=== PATIENT | male | born 2000 | race Caucasian/White ===

== ENCOUNTER 2023-12-17 17:33 | Emergency (ER) | payer SELFPAY ==
[2023-12-17 17:35] VITALS: BP 109/70; PULSE 92; RESP 17; TEMP 36.8; O2SAT 97; BMI 18.4
[2023-12-17 17:49] VITALS: BP 109/70; PULSE 96; O2SAT 94
[2023-12-17 18:00] VITALS: BP 104/69; PULSE 99; O2SAT 95
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
[2023-12-17] MEDS: BACITRACIN ZINC OINT 30GM TUBE TP (18:32)
[2023-12-17 18:34] VITALS: BP 104/69; PULSE 99; RESP 18; TEMP 36.7; O2SAT 95
== END 2023-12-17 18:36 | disposition home or self-care (01) ==
PROVIDERS: Emergency Provider Emergency Medicine
DX: L29.0 Pruritus ani (principal); T65.891A Toxic effect of other specified substances, accidental (unintentional), initial encounter
CPT/HCPCS: 99283

== ENCOUNTER 2024-03-02 12:48 | Emergency (ER) | payer BC, SELFPAY ==
[2024-03-02 13:00] VITALS: BP 112/67; PULSE 116; RESP 22; TEMP 37.1; O2SAT 96; BMI 18.3
--- NOTE | 2024-03-02 13:07 | ED_ITS ---
Discharge Plan Disposition Patient Disposition: Home, Self-Care Condition: Good Prescriptions Prescriptions: New azithromycin [Zithromax] 250 mg tablet 250 mg PO UD DOSE PK Qty: 6 0RF Rx Instructions: Take two (2) tablets today, then one (1) tablet days #2 thru #5 [id number]-[id number] [Bromfed DM] 2-30-10 mg/5 mL Syrup 5 ml PO Q6H PRN (Reason: Cough) Qty: 240 0RF Referrals Follow up/Referrals: Provider,Referral, [Primary Care Provider] - See instructions Activity Restrictions/Add. Instructions Additional Instructions/Restrictions: Drink plenty of fluids. Take tylenol or ibuprofen for pain or fever. Take the medications as directed. Follow up with your regular doctor. GO TO THE ER FOR ANY WORSENING SYMPTOMS Clinical Impressions Clinical Impression: Pharyngitis, Acute viral syndrome Stand Alone Forms Stand Alone Forms: Work/School Release Instructions Patient Instructions: Sore Throat, DI for Pharyngitis/Tonsillopharyngitis -- Adult, DI for Viral Syndrome Discharge ED Provider: Sid Ferreira [facility] General Stated complaint: soa, fever, congestion Time Seen by Provider: 03/02/24 13:07 History of Present Illness Provider Complaint: He c/o sore throat and low grade fever for the past 2 days. Related Data Previous Rx's Medication Instructions Recorded azithromycin 250 mg tablet 250 mg PO UD DOSE PK #6 tabs 03/02/24 (Zithromax) dmkdkivfnwoxorr-rcdofhnixakaztq-WE 5 ml PO Q6H PRN Cough #240 mL 03/02/24 2 mg-30 mg-10 mg/5 mL oral syrup (Bromfed DM) Allergies Allergy/AdvReac Type Severity Reaction Status Date / Time Penicillins Allergy Verified 12/17/23 17:48 [facility] Disclaimer: The information contained in this section may have been updated after the patient was seen, as this information can be updated by other users. Medical History (Updated 03/02/24 @ 13:45 by Sid Ferreira APRN) UTI (urinary tract infection) Depression Anxiety Social History (Updated 12/17/23 @ 18:34 by Elian Rodríguez MD) Smoking Status: Current every day smoker alcohol intake: never current occupational status: employed Travel in the last 8 weeks: None ROS Obtained: Yes All systems reviewed & no additional complaints except as documented Constitutional Constitutional: Reports chills and Reports fever(s) Eyes Eyes: Denies eye discharge ENT Ears, Nose, Mouth, and Throat: Reports as per HPI Cardiovascular Cardiovascular: Denies chest pain Respiratory Respiratory: Denies chest congestion and Reports cough Gastrointestinal Gastrointestingal: Reports nausea; Denies abdominal pain, constipation, crampi ng, diarrhea or vomiting Musculoskeletal Musculoskeletal: Denies arthralgias Integumentary/Breasts Skin/Breast: Denies rash Neurologic Neurologic: Denies paresthesias Physical Exam General General appearance: alert and in no apparent distress Head Head exam: atraumatic, normocephalic and normal inspection Eye Eye exam: Present normal appearance, PERRL and EOMI ENT ENT exam: Present mucous membranes moist and normal external ear exam Expanded ENT Exam TM/Canal exam: Bilateral TM: erythema and bulging Nose exam: Absent sinus tenderness Mouth exam: Present normal external inspection; Absent drooling Teeth exam: Present normal inspection Throat exam: Present tonsillar erythema, tonsillomegaly and tonsillar exudate Neck Neck exam: Present normal inspection, full ROM and trachea midline; Absent tenderness, meningismus or lymphadenopathy Chest Chest inspection: Present normal inspection and symmetric chest wall rise; Absent tenderness Respiratory Respiratory exam: Present normal lung sounds bilaterally; Absent respiratory distress, wheezes, stridor or accessory muscle use Cardiovascular Cardiovascular exam: Present regular rate and normal rhythm; Absent systolic murmur or diastolic murmur Abdominal Exam Abdominal exam: Present soft and normal bowel sounds; Absent distention, tenderness, guarding, rebound or rigidity Extremities Exam Extremities exam: Present normal inspection and normal capillary refill; Absent calf tenderness Back Exam Back exam: Present normal inspection and full ROM; Absent tenderness, CVA tenderness (R) or CVA tenderness (L) Neurological Exam Neurological exam: Present alert, oriented X3 and CN II-XII intact Psychiatric Psychiatric exam: Present normal affect and normal mood Skin Skin exam: Present warm, dry, intact and normal color Medical Decision Making Medical Records Medical records reviewed: No I reviewed the patient's medical records. Sandro Inquiry Pt receiving controlled substance: No Lab Data Lab results reviewed: Yes I reviewed the patient's lab results.
[2024-03-02 13:16] LABS: UTC Strep Screen (Rapid) Negative (Negative)
[2024-03-02 13:50] VITALS: BP 112/67; PULSE 116; RESP 22; TEMP 37.1; O2SAT 96
== END 2024-03-02 13:53 | disposition home or self-care (01) ==
PROVIDERS: Emergency Provider Nurse Practitioner Family
DX: J02.9 Acute pharyngitis, unspecified (principal); R50.9 Fever, unspecified; B34.9 Viral infection, unspecified
CPT/HCPCS: 87635; 87880; 99204; 99212; G0463

== ENCOUNTER 2024-08-16 18:05 | Emergency (ER) | payer BC, MEDICAID, SELFPAY ==
[2024-08-16 18:20] VITALS: BP 118/74; PULSE 72; RESP 14; TEMP 36.7; O2SAT 98; BMI 18.9
[2024-08-16 18:45] LABS: Microscopic, Urine URINE MICROSCOPIC (MICROSCOPIC)
[2024-08-16 18:48] LABS: Bilirubin,Urine Negative (Negative); Blood, Urine Negative (Negative); Color,Urine YELLOW (Yellow); Glucose,Urine (UA) Negative (Negative); Ketones,Urine Negative (Negative); Leukocyte Esterase,Urine Negative (Negative); Nitrate,Urine Negative (Negative); PH,Urine 7.5 (5.0-8.5); Protein,Urine Negative (Negative)
[2024-08-16 19:00] LABS: RBC,Urine Occasional #/hpf (0-3)
[2024-08-16 19:01] LABS: Amorphous Sediment,Urine 4+ /lpf; Appearance,Urine Cloudy (Clear); Bacteria,Urine 1+ /lpf; WBC,Urine Occasional #/hpf (0-3)
[2024-08-16] MEDS: cefTRIAXone 500MG VIAL 500 MG IM (19:30)
[2024-08-16] MEDS: LIDOCAINE 1% 5ML PF VIAL IM (19:30)
[2024-08-16] MEDS: metroNIDAZOLE 500 MG TABLET 2000 MG PO (19:30)
[2024-08-16 19:39] VITALS: BP 122/87; PULSE 68; RESP 18; TEMP 36.6; O2SAT 98
--- NOTE | 2024-08-16 20:20 | HMH.EDGENADL ---
Discharge Plan Disposition Patient Disposition: Home, Self-Care Condition: Good Prescriptions Prescriptions: New doxycycline monohydrate 100 mg capsule 100 mg PO BID 7 Days Qty: 14 0RF No Action azithromycin [Zithromax] 250 mg tablet 250 mg PO UD DOSE PK Qty: 6 0RF Rx Instructions: Take two (2) tablets today, then one (1) tablet days #2 thru #5 eihfkgxmreenxwy-kxjritxec-RJ [Bromfed DM] 2-30-10 mg/5 mL Syrup 5 ml PO Q6H PRN (Reason: Cough) Qty: 240 0RF Referrals Follow up/Referrals: Provider,Referral, MD [Primary Care Provider] - See instructions Activity Restrictions/Add. Instructions Additional Instructions/Restrictions: You were seen after sexually transmitted infection exposure. You were treated for gonorrhea, chlamydia and trichomonas. Your tests are still pending. Please follow up with your PCP. Clinical Impressions Clinical Impression: Exposure to sexually transmitted disease (STD) Instructions Patient Instructions: DI for Trichomoniasis Print Language Print Language: Thai Discharge ED Provider: Elian Rodríguez General Adult HPI <MANUEL Chua - Last Filed: 08/16/24 20:24> General Chief complaint: Urogenital-Male Stated complaint: was told partner had trich & to be treated Time Seen by Provider: 08/16/24 18:23 Mode of Arrival: Ambulatory Source of Information: Patient Limitations: No Limitations Description of Symptoms (Recalled from ER Triage Doc. by RN): PT REPORTS WAS TOLD EARLIER THIS DATE HIS PARTNER HAS TRICH AND THAT HE WOULD NEED TO BE TREATED. PT STATES NO PAIN WITH URINATION, NO DISCHARGE NOTED. History of Present Illness HPI narrative: Patient presents comes with concerns over trichomonas exposure. His apparently tested positive earlier this evening. He denies any dysuria or frequency. Denies any penile discharge. He does report that they both had a new sexual partner recently. Denies any fevers or vomiting. complaint: trichomonas exposure Onset (ago): unknown Location: genitals Quality: other (no symptoms) Relieving factors: none Exacerbating factors: none Associated symptoms: denies other symptoms Treatments prior to arrival: none Related Data Previous Rx's ?Medication ?Instructions ?Recorded azithromycin 250 mg tablet 250 mg PO UD DOSE PK #6 tabs 03/02/24 (Zithromax) fayrhancntxnero-cdcwojwvonpyczl-VW 5 ml PO Q6H PRN Cough #240 mL 03/02/24 2 mg-30 mg-10 mg/5 mL oral syrup (Bromfed DM) doxycycline monohydrate 100 mg 100 mg PO BID 7 days #14 caps 08/16/24 capsule Allergies Allergy/AdvReac Type Severity Reaction Status Date / Time Penicillins Allergy Verified 12/17/23 17:48 PFSH <MANUEL Chua - Last Filed: 08/16/24 20:24> PFS Disclaimer: The information contained in this section may have been updated after the patient was seen, as this information can be updated by other users. Medical History (Updated 08/16/24 @ 19:07 by MANUEL Chua) UTI (urinary tract infection) Depression Anxiety Social History (Updated 08/16/24 @ 18:34 by Jessica Montalvo RN) Smoking Status: Current every day smoker alcohol intake: never current occupational status: employed Travel in the last 8 weeks: None Have you lived/traveled outside [place] in past 30 days?: No Contact w/someone who lives/traveled outside [place] past 30 days?: No Exposure to someone with infectious disease in past 14 days?: No Do you have a fever (greater than 100.4 F or 38 C)?: No Have you tested positive for COVID-19: No Exposed to someone with COVID-19 in past 14 days?: No Do you have a sore throat?: No Do you have a cough?: No Do you have any weakness?: No Do you have any diarrhea?: No Are you experiencing any unusual bleeding?: No Do you have any muscle aches/pain?: No Do you have any abdominal pain?: No Are you experiencing loss of taste or smell?: No <MANUEL Chua - Last Filed: 08/16/24 20:24> ROS Obtained: Yes Systems reviewed as appropriate & no additional complaints except as documented Physical Exam <MANUEL Chua - Last Filed: 08/16/24 20:24> General General appearance: alert and in no apparent distress Head Head exam: atraumatic and normocephalic Eye Eye exam: Present normal appearance and EOMI Chest Chest inspection: Present symmetric chest wall rise Respiratory Respiratory exam: Present normal lung sounds bilaterally; Absent wheezes or stridor Cardiovascular Cardiovascular exam: Present regular rate and normal rhythm; Absent systolic murmur Abdominal Exam Abdominal exam: Present soft and distention; Absent tenderness Extremities Exam Extremities exam: Present full ROM Neurological Exam Neurological exam: Present alert and oriented X3 Psychiatric Psychiatric exam: Present normal affect and normal mood Skin Skin exam: Present warm, dry and intact Medical Decision Making <MANUEL Chua - Last Filed: 08/16/24 20:24> Medical Records Screening: Per USPSTF and CDC recommendations, given the prevalence of disease in our region, it is our hospital?s policy to screen for HIV and viral Hepatitis for all patients aged 18 and over and those with ongoing risk factors. Sandro Inquiry Pt receiving controlled substance: No Vital Signs: 08/16/24 18:20 08/16/24 19:39 Temperature 98.1 F 97.8 F Temperature Source Oral Pulse Rate 68 Pulse Rate [Right Radial] 72 Respiratory Rate 14 18 Blood Pressure 122/87 Blood Pressure [Right Arm] 118/74 Blood Pressure Mean [Right Arm] 88 Blood Pressure Source [Right Arm] Automatic Cuff Blood Pressure Position [Right Arm] Sitting 02 Sat by Pulse Oximetry 98 Oxygen Delivery Method Room Air Room Air Lab Data Lab Results 08/16/24 18:43: Urine Color Yellow, Urine Appearance Cloudy, Urine pH 7.5, Ur Specific [place] 1.020, Urine Protein Negative, Urine Glucose (UA) Negative, Urine Ketones Negative, Urine Blood Negative, Urine Nitrate Negative, Urine Bilirubin Negative, Urine Urobilinogen 1.0, Ur Leukocyte Esterase Negative, Urine RBC Occasional, Urine WBC Occasional, Amorphous Sediment 4+, Urine Bacteria 1+ Orders (Tests/Meds): ED MEDICATIONS Discontinued Medications Generic Name Dose Route Start Last Admin Trade Name Arvin PRN Reason Stop Dose Admin Ceftriaxone Sodium 500 mg 08/16/24 19:04 08/16/24 19:30 Ceftriaxone 500mg Vial IM 08/16/24 19:05 500 mg ONCE ONE Administration Lidocaine HCl 0 ml 08/16/24 19:04 08/16/24 19:30 Lidocaine 1% 5ml Pf Vial IM 08/16/24 19:05 1 ml ONCE ONE Administration Metronidazole 2,000 mg 08/16/24 19:04 08/16/24 19:30 Metronidazole 500 Mg Tablet PO 08/16/24 19:05 2,000 mg ONCE ONE Administration ORDERS Category Date Time Status Urinalysis and Microscopic Stat Lab 08/16/24 18:43 Completed Medical Decision Narrative: In summary patient is a 24-year-old who presents the emergency department for evaluation of exposure to trichomonas. Patient is hemodynamically stable upon arrival, A-fib. Unremarkable physical. Differential diagnosis includes trichomonas, gonorrhea, chlamydia. Initial workup will be conducted with urinalysis. Initial inventions include treated empirically with Flagyl and Rocephin, will be given a prescription for doxycycline. Initial workup reviewed by me urinalysis unremarkable. Given this patient is appropriate for discharge home with prescription for doxycycline. Follow-up with PCP. <Elian Rodríguez MD - Last Filed: 08/16/24 21:25> Vital Signs: 08/16/24 18:20 08/16/24 19:39 Temperature 98.1 F 97.8 F Temperature Source Oral Pulse Rate 68 Pulse Rate [Right Radial] 72 Respiratory Rate 14 18 Blood Pressure 122/87 Blood Pressure [Right Arm] 118/74 Blood Pressure Mean [Right Arm] 88 Blood Pressure Source [Right Arm] Automatic Cuff Blood Pressure Position [Right Arm] Sitting 02 Sat by Pulse Oximetry 98 Oxygen Delivery Method Room Air Room Air Lab Data Lab Results 08/16/24 18:43: Urine Color Yellow, Urine Appearance Cloudy, Urine pH 7.5, Ur Specific [place] 1.020, Urine Protein Negative, Urine Glucose (UA) Negative, Urine Ketones Negative, Urine Blood Negative, Urine Nitrate Negative, Urine Bilirubin Negative, Urine Urobilinogen 1.0, Ur Leukocyte Esterase Negative, Urine RBC Occasional, Urine WBC Occasional, Amorphous Sediment 4+, Urine Bacteria 1+ Orders (Tests/Meds): ED MEDICATIONS Discontinued Medications Generic Name Dose Route Start Last Admin Trade Name Arvin PRN Reason Stop Dose Admin Ceftriaxone Sodium 500 mg 08/16/24 19:04 08/16/24 19:30 Ceftriaxone 500mg Vial IM 08/16/24 19:05 500 mg ONCE ONE Administration Lidocaine HCl 0 ml 08/16/24 19:04 08/16/24 19:30 Lidocaine 1% 5ml Pf Vial IM 08/16/24 19:05 1 ml ONCE ONE Administration Metronidazole 2,000 mg 08/16/24 19:04 08/16/24 19:30 Metronidazole 500 Mg Tablet PO 08/16/24 19:05 2,000 mg ONCE ONE Administration ORDERS Category Date Time Status Urinalysis and Microscopic Stat Lab 08/16/24 18:43 Completed Medical Decision Narrative: In summary patient is a 24-year-old who presents the emergency department for evaluation of exposure to trichomonas. Patient is hemodynamically stable upon arrival, A-fib. Unremarkable physical. Differential diagnosis includes trichomonas, gonorrhea, chlamydia. Initial workup will be conducted with urinalysis. Initial inventions include treated empirically with Flagyl and Rocephin, will be given a prescription for doxycycline. Initial workup reviewed by me urinalysis unremarkable. Given this patient is appropriate for discharge home with prescription for doxycycline. Follow-up with PCP. I was consulted by the REGINE, and we discussed the complexity of the problems being addressed. I approved the treatment and management plan for this patient's care in the Emergency Department, thus performing a substantive portion of the medical decision making. Elian Rodríguez MD Critical Care <MANUEL Chua - Last Filed: 08/16/24 20:24> Critical Care Time Critical Care Time: No
[2024-08-19 04:02] LABS: Neisseria gonorrhoeae, NAA Negative (Negative)
== END 2024-08-16 19:40 | disposition home or self-care (01) ==
PROVIDERS: Physician Assistant; Emergency Provider Emergency Medicine
DX: A59.9 Trichomoniasis, unspecified (principal); Z20.2 Contact with and (suspected) exposure to infections with a predominantly sexual mode of transmission
CPT/HCPCS: 81001; 87491; 87591; 96372; 99283; J0696